=== PATIENT | male | born 1965 ===

== ENCOUNTER 2016-06-06 08:10 | Emergency (ER) | payer OTHER, SELFPAY ==
[2016-06-06 08:13] VITALS: BMI 22.6
[2016-06-06 08:35] VITALS: O2SAT 98
[2016-06-06] MEDS ORDERED: Sodium Chloride 0.9% 1,000 ML IV STA ×2 (09:14→10:10)
--- NOTE | 2016-06-06 09:36 | ED PDOC ---
HPI: General Adult Time Seen by Provider: 06/06/16 09:09 Chief Complaint (Nursing): Dizziness/Lightheaded Chief Complaint (Provider): Dizziness/Lightheaded History Per: Patient History/Exam Limitations: no limitations Onset/Duration Of Symptoms: Days Current Symptoms Are (Timing): Still Present Additional Complaint(s): 51 y/o male with a past medical history of diabetes who presents to the emergency department with a complaint of an elevated blood sugar prior to arrival. Patient states he did not test his sugar but knew because he as [age] , and had a dry mouth. Had experienced similar episode in the past. Denies taking medications for DM. --Upon arrival, AccuCheck: >350 PMD: None Past Medical History Reviewed: Historical Data, Nursing Documentation, Vital Signs Vital Signs: Last Vital Signs Temp 98.6 F 06/06/16 15:45 Pulse 84 06/06/16 15:45 Resp 20 06/06/16 15:45 BP 120/70 06/06/16 15:45 Pulse Ox 98 06/06/16 15:45 - Medical History PMH: No Chronic Diseases - Surgical History Surgical History: No Surg Hx - Family History Family History: States: Unknown Family Hx - Social History Current smoker - smoking cessation education provided: No Alcohol: None Drugs: Denies - Home Medications Home Medications: Ambulatory Orders Medication Instructions Recorded metFORMIN [glucOPHAGE] 500 mg PO BID #20 tab 06/06/16 - Allergies Allergies/Adverse Reactions: Allergies Allergy/AdvReac Type Severity Reaction Status Date / Time No Known Allergies Allergy Verified 06/06/16 08:27 Review of Systems ROS Statement: Except As Marked, All Systems Reviewed And Found Negative Constitutional: Positive for: Other (Thirsty and elevated blood sugar) Physical Exam - Reviewed Nursing Documentation Reviewed: Yes Vital Signs Reviewed: Yes - Physical Exam Appears: Positive for: Non-toxic, No Acute Distress Head Exam: Positive for: ATRAUMATIC, NORMOCEPHALIC Skin: Positive for: Normal Color, Warm, Dry Neck: Positive for: Normal, Supple Cardiovascular/Chest: Positive for: Regular Rate, Rhythm. Negative for: Murmur Respiratory: Positive for: Normal Breath Sounds. Negative for: Accessory Muscle Use, Respiratory Distress Neurologic/Psych: Positive for: Alert, Oriented - Laboratory Results Result Diagrams: 06/06/16 09:30 06/06/16 09:30 - ECG O2 Sat by Pulse Oximetry: 98 (RA) Pulse Ox Interpretation: Normal Medical Decision Making Medical Decision Making: Time: 9:09 Initial impression: Elevated Blood Sugar Count Initial plan: --VBG Venous Blood gas --Electrocardiogram Stat --COMP Metabolic Panel --Ed Urine dipstick (POC) --EKG-ED (EDNURTX) Stat --CBC w/ differential --Sodium Chloride 1,000 ml IV 1,000 mls/hr --Glucose, Blood, POC Stat --Urinalysis Stat --Revaluation Scribe Attestation: Documented by Natalia Wood, acting as a scribe for Josefina Esteban. Provider Scribe Attestation: All medical record entries made by the Scribe were at my direction and personally dictated by me. I have reviewed the chart and agree that the record accurately reflects my personal performance of the history, physical exam, medical decision making, and the department course for this patient. I have also personally directed, reviewed, and agree with the discharge instructions and disposition. Disposition - Clinical Impression Clinical Impression: Hyperglycemia - Disposition Referrals: [facility] [Outside] Disposition: Routine/Home Disposition Time: 12:21 Condition: STABLE Additional Instructions: LLENAR LA PRESCRIPCIN DE MEDICACIN PARA LA DIABETES SIN FALTA! Prescriptions: metFORMIN [glucOPHAGE] 500 mg PO BID #20 tab Instructions: Diabetic Hyperglycemia (ED) Print Language: PERSIAN
[2016-06-06 09:47] LABS: BASO % 0.5 % (0.0-2.0); EOS % 0.9 % (0.0-4.0); HEMATOCRIT 44.7 % (35.0-51.0); LYMPH # 1.7 K/uL (1.0-4.3); LYMPH % 39.8 % (20.0-40.0); MEAN CELL VOLUME 94.4 fl (80.0-94.0); MEAN CORPUSCULAR HEMOGLOBIN 31.4 pg (27.0-31.0); MEAN CORPUSCULAR HGB CONC 33.3 g/dL (33.0-37.0); MONO # 0.4 K/uL (0.0-0.8); MONO % 8.8 % (0.0-10.0); NEUT # 2.1 K/uL (1.8-7.0); NRBC % 0.1 % (0.0-0.0); RED CELL DISTRIBUTION WIDTH 13.3 % (11.5-14.5); WHITE BLOOD COUNT 4.2 K/uL (4.8-10.8)
[2016-06-06 09:54] LABS: ALKALINE PHOSPHATASE 123 U/L (38-126); ALT/SGPT 58 U/L (21-72); AST/SGOT 50 U/L (17-59); BLOOD UREA NITROGEN 17 mg/dl (9-20); CALCIUM 9.4 mg/dL (8.4-10.2); CARBON DIOXIDE 21 mmol/L (22-30); CHLORIDE 103 mmol/L (98-107); GFR AFRICAN-AMERICAN > 60; GLUCOSE,RANDOM 344 mg/dL (75-110); SODIUM 139 mmol/l (132-148); TOTAL PROTEIN 8.2 G/DL (6.3-8.2)
[2016-06-06 09:55] LABS: ALB/GLOB RATIO 1.1 (1.0-2.1); RBC URINE 1 /hpf (0-3); URINE BILIRUBIN NEGATIVE (NEGATIVE); URINE BLOOD NEGATIVE (NEGATIVE); URINE COLOR YELLOW (YELLOW); URINE GLUCOSE (UA) >=500 mg/dL (Normal); URINE KETONE 80 mg/dL (NEGATIVE); URINE LEUKOCYTE ESTERASE NEG Leu/uL (Negative); URINE PROTEIN NEGATIVE (NEGATIVE); URINE UROBILINOGEN 0.2-1.0 mg/dL (0.2-1.0); WBC URINE 2 /hpf (0-5)
[2016-06-06 09:56] LABS: POTASSIUM 4.3 MMOL/L (3.6-5.0)
[2016-06-06 10:22] LABS: VENOUS BLOOD GAS BASE EXCESS 0.8 mmol/L (0.0-2.0); VENOUS BLOOD GAS PCO2 49 mmHg (40-60); VENOUS BLOOD PH 7.35 (7.32-7.43)
[2016-06-06 15:47] VITALS: BP 120/70; PULSE 84; RESP 20; TEMP 98.6
--- NOTE | 2016-06-06 18:03 | CARD ---
APPROVED REPORT EKG Measurement Heart [id number] <Conclusion> Sinus bradycardia Otherwise normal ECG
== END 2016-06-06 15:48 | disposition home or self-care (01) ==
LOC: H.ER 08:10
DX: E11.65 Type 2 diabetes mellitus with hyperglycemia (principal)

== ENCOUNTER 2016-06-27 12:13 | Emergency (ER) | payer SELFPAY ==
[2016-06-27 12:13] VITALS: BMI 22.6
[2016-06-27 12:23] VITALS: BP 107/69; PULSE 66; RESP 18; TEMP 97.8; O2SAT 100
--- NOTE | 2016-06-27 12:40 | ED PDOC ---
ATTENTION PHYSICIANS Hyperglycemia/Hypoglycemia Chief Complaint (Provider): Hyperglycemia History Per: Patient History/Exam Limitations: no limitations Current Diabetic Medications: Oral Medication (Metformin 500mg BID) Causative (Exacerbating) Factor(s): Missed Taking Medication Associated Infectious Symptoms: denies: Cough, Sore Throat, Sinus Congestion, Dysuria, Urinary Urgency, Urinary Frequency, Nausea, Vomiting, Diarrhea : The patient does not have any of the infectious symptoms listed except for those marked. Treatment Prior To Provider Evaluation: Accucheck Additional Complaint(s): 51 year old male with medical history of diabetes mellitus presents to ED via PMD office due to hyperglycemia. Patient went to PMD office for DM management, found to have BS >300 and ketonuria. No medications given then. Last meal last night. Patient states has not taken metformin x 2 weeks due to running out of medications. Patient denies abdominal pain, nausea, vomiting, chest pain, sob, headache, palpitations, dysuria, polyuria, polydipsia. No cough, fever, chills, recent illness, or recent travel. PMD: Dr. Brand, [facility] <Aidan Medley - Last Filed: 06/27/16 14:49> <Martha Moses - Last Filed: 06/27/16 16:10> Time Seen by Provider: 06/27/16 12:25 Chief Complaint (Nursing): High Blood Sugar Supervising Attending Note - Supervising Attending Note The Documented history was done by the: Physician Dray Driver The documented physical exam was done by the: Physician Dray Driver The documented procedures were done by the: Physician Dray Driver - Attestation: I have personally seen and examined this patient.: Yes I have fully participated in the care of the patient.: Yes I have reviewed all pertinent clinical information, including history, physical exam and plan: Yes <Martha Moses - Last Filed: 06/27/16 16:10> Past Medical History Vital Signs: Last Vital Signs Temp 97.8 F 06/27/16 12:20 Pulse 66 06/27/16 12:20 Resp 18 06/27/16 12:20 BP 107/69 06/27/16 12:20 Pulse Ox 100 06/27/16 12:20 - Family History Family History: States: Unknown Family Hx <Aidan Medley - Last Filed: 06/27/16 14:49> Vital Signs: Last Vital Signs Temp 97.8 F 06/27/16 12:20 Pulse 66 06/27/16 12:20 Resp 18 06/27/16 12:20 BP 107/69 06/27/16 12:20 Pulse Ox 100 06/27/16 14:51 <Martha Moses - Last Filed: 06/27/16 16:10> - Home Medications Home Medications: Ambulatory Orders Medication Instructions Recorded metFORMIN [glucOPHAGE] 500 mg PO BID #20 tab 06/06/16 MetFORMIN [glucoPHAGE] 1,000 mg PO BID #60 tab 06/27/16 - Allergies Allergies/Adverse Reactions: Allergies Allergy/AdvReac Type Severity Reaction Status Date / Time No Known Allergies Allergy Verified 06/06/16 08:27 - Laboratory Results Result Diagrams: 06/27/16 12:17 06/27/16 12:17 - ECG O2 Sat by Pulse Oximetry: 100 Pulse Ox Interpretation: Normal - Progress ED Course And Treament: Time: 1240 Initial impression: 51 year old male with DMII with hyperglycemia/ketonuria, asymptomatic. Plan: * POC - 340 * CBC * CMP * VBG * URINALYSIS * NS 1L BOLUS * REEVAL Time: 1430 Labs reviewed, Ketonuria, Glucosuria, Hyperkalemia (5.3), Serum Gluc 331. POC after bolus 290 Will administer 4U of Insulin SQ and 1L of NS. Repeat POC after interventions <Aidan Medley - Last Filed: 06/27/16 14:49> - Laboratory Results Result Diagrams: 06/27/16 12:17 06/27/16 12:17 <Martha Moses - Last Filed: 06/27/16 16:10> Disposition <Aidan Medley - Last Filed: 06/27/16 14:49> - Patient ED Disposition Is Patient to be Admitted: No Doctor Will See Patient In The: Office - Disposition Disposition: Routine/Home Disposition Time: 16:10 - POA Present On Arrival: None <Martha Moses - Last Filed: 06/27/16 16:10> - Clinical Impression Clinical Impression: Hyperglycemia, Diabetes - Disposition Referrals: Leonila Brand MD [Resident] - Condition: STABLE Additional Instructions: Follow up with PMD within 7 days. Take medications as prescribed. Monitor blood glucose levels at home. Return to ED for worsening symptoms. Prescriptions: MetFORMIN [glucoPHAGE] 1,000 mg PO BID #60 tab Instructions: Diabetic Hyperglycemia (ED) Print Language: FRENCH
[2016-06-27] MEDS: Sodium Chloride 0.9% 1,000 ML IV SCH ×2 (13:03→14:52)
[2016-06-27 13:09] LABS: RBC URINE 2 /hpf (0-3); URINE BILIRUBIN NEGATIVE (NEGATIVE); URINE BLOOD NEGATIVE (NEGATIVE); URINE COLOR YELLOW (YELLOW); URINE GLUCOSE (UA) >=500 mg/dL (Normal); URINE KETONE 80 mg/dL (NEGATIVE); URINE LEUKOCYTE ESTERASE NEG Leu/uL (Negative); URINE PROTEIN NEGATIVE (NEGATIVE); URINE UROBILINOGEN 0.2-1.0 mg/dL (0.2-1.0); WBC URINE < 1 /hpf (0-5)
[2016-06-27 13:11] LABS: VENOUS BLOOD GAS BASE EXCESS 3.6 mmol/L (0.0-2.0); VENOUS BLOOD GAS PCO2 60 mmHg (40-60); VENOUS BLOOD PH 7.33 (7.32-7.43)
[2016-06-27 13:12] LABS: EOS % 0.3 % (0.0-4.0); HEMATOCRIT 45.1 % (35.0-51.0); LYMPH # 1.3 K/uL (1.0-4.3); LYMPH % 30.9 % (20.0-40.0); MEAN CORPUSCULAR HEMOGLOBIN 32.1 pg (27.0-31.0); MEAN CORPUSCULAR HGB CONC 34.5 g/dL (33.0-37.0); MEAN PLATELET VOLUME 10.6 fl (7.2-11.7); MONO # 0.3 K/uL (0.0-0.8); MONO % 7.5 % (0.0-10.0); NEUT # 2.6 K/uL (1.8-7.0); NEUT % 60.3 % (50.0-75.0); NRBC % 0.2 % (0.0-0.0); RED CELL DISTRIBUTION WIDTH 13.1 % (11.5-14.5); WHITE BLOOD COUNT 4.3 K/uL (4.8-10.8)
[2016-06-27 13:31] LABS: ALB/GLOB RATIO 1.3 (1.0-2.1); ALKALINE PHOSPHATASE 122 U/L (38-126); ALT/SGPT 70 U/L (21-72); AST/SGOT 42 U/L (17-59); BILIRUBIN,TOTAL 0.7 mg/dl (0.2-1.3); BLOOD UREA NITROGEN 24 mg/dl (9-20); CALCIUM 9.8 mg/dL (8.4-10.2); CARBON DIOXIDE 27 mmol/L (22-30); CHLORIDE 101 mmol/L (98-107); GFR AFRICAN-AMERICAN > 60; GLUCOSE,RANDOM 331 mg/dL (75-110); POTASSIUM 5.3 MMOL/L (3.6-5.0); SODIUM 138 mmol/l (132-148); TOTAL PROTEIN 8.3 G/DL (6.3-8.2)
[2016-06-27] MEDS ORDERED: Insulin Regular 100 units/ml SC STA (14:49)
[2016-06-27] MEDS ORDERED: Sodium Chloride 0.9% 1,000 ML IV SCH (15:00)
== END 2016-06-27 16:20 | disposition home or self-care (01) ==
LOC: H.ER 12:13
DX: E11.65 Type 2 diabetes mellitus with hyperglycemia (principal); Z79.4 Long term (current) use of insulin; E87.5 Hyperkalemia

== ENCOUNTER 2016-09-22 11:11 | Emergency (ER) | payer OTHER ==
[2016-09-22 11:11] VITALS: BMI 22.6
[2016-09-22] MEDS ORDERED: Sodium Chloride 0.9% 1,000 ML IV STA (11:36)
[2016-09-22 12:23] LABS: BASO % 0.5 % (0.0-2.0); EOS % 0.2 % (0.0-4.0); LYMPH # 1.5 K/uL (1.0-4.3); LYMPH % 31.7 % (20.0-40.0); MEAN CELL VOLUME 95.8 fl (80.0-94.0); MEAN CORPUSCULAR HGB CONC 34.5 g/dL (33.0-37.0); MEAN PLATELET VOLUME 10.3 fl (7.2-11.7); MONO # 0.3 K/uL (0.0-0.8); MONO % 6.4 % (0.0-10.0); NEUT # 2.9 K/uL (1.8-7.0); NEUT % 61.2 % (50.0-75.0); NRBC % 0.1 % (0.0-0.0); RBC 4.25 Mil/uL (4.40-5.90); RED CELL DISTRIBUTION WIDTH 13.8 % (11.5-14.5); WHITE BLOOD COUNT 4.7 K/uL (4.8-10.8)
[2016-09-22 12:27] LABS: URINE BILIRUBIN NEGATIVE (NEGATIVE); URINE BLOOD NEGATIVE (NEGATIVE); URINE CLARITY CLEAR (Clear); URINE COLOR STRAW (YELLOW); URINE GLUCOSE (UA) >=500 mg/dL (Normal); URINE LEUKOCYTE ESTERASE NEG Leu/uL (Negative); URINE NITRATE NEGATIVE (NEGATIVE); URINE PROTEIN NEGATIVE (NEGATIVE); URINE UROBILINOGEN 0.2-1.0 mg/dL (0.2-1.0)
[2016-09-22 12:48] LABS: ABG ALLEN TEST YES; ARTERIAL BLOOD GAS HCO3 24.6 mmol/L (21-28); ARTERIAL BLOOD GAS O2 SAT 99.8 % (95-98); ARTERIAL BLOOD GAS PCO2 38 mm/Hg (35-45); ARTERIAL BLOOD GAS PH 7.41 (7.35-7.45); ARTERIAL BLOOD GAS PO2 110 mm/Hg (80-100); ARTERIAL BLOOD GAS TCO2 25.3 mmol/L (22-28)
[2016-09-22] MEDS ORDERED: Insulin Regular 100 units/ml SC STA (12:55)
[2016-09-22 12:57] LABS: ALB/GLOB RATIO 1.3 (1.0-2.1); ALT/SGPT 83 U/L (21-72); AST/SGOT 56 U/L (17-59); BLOOD UREA NITROGEN 15 mg/dl (9-20); CALCIUM 8.9 mg/dL (8.4-10.2); GFR AFRICAN-AMERICAN > 60; GFR NON-AFRICAN AMERICAN > 60
--- NOTE | 2016-09-22 13:17 | ED PDOC ---
HPI: General Adult Time Seen by Provider: 09/22/16 11:35 Chief Complaint (Nursing): Medical Clearance Chief Complaint (Provider): medical eval History Per: Patient History/Exam Limitations: no limitations Additional Complaint(s): 51yo M in ED sent from clinic for elevated BS , taking metformin and with some dizziness. denies SOB, CP, SMART, vision changes, increased urination, Past Medical History Reviewed: Historical Data, Nursing Documentation, Vital Signs Vital Signs: Last Vital Signs Temp 98.1 F 09/22/16 14:20 Pulse 66 09/22/16 14:20 Resp 18 09/22/16 14:20 BP 119/77 09/22/16 14:20 Pulse Ox 100 09/22/16 14:20 - Medical History PMH: Graves' Disease - Family History Family History: States: Unknown Family Hx - Home Medications Home Medications: Ambulatory Orders Medication Instructions Recorded metFORMIN [glucOPHAGE] 500 mg PO BID #20 tab 06/06/16 MetFORMIN [glucoPHAGE] 1,000 mg PO BID #60 tab 06/27/16 - Allergies Allergies/Adverse Reactions: Allergies Allergy/AdvReac Type Severity Reaction Status Date / Time No Known Allergies Allergy Verified 09/22/16 11:25 Review of Systems ROS Statement: Except As Marked, All Systems Reviewed And Found Negative Constitutional: Negative for: Fever, Chills Cardiovascular: Negative for: Chest Pain, Palpitations Respiratory: Negative for: Cough Gastrointestinal: Negative for: Nausea, Vomiting, Abdominal Pain Genitourinary Male: Negative for: Dysuria, Frequency Neurological: Positive for: Dizziness Physical Exam - Reviewed Nursing Documentation Reviewed: Yes Vital Signs Reviewed: Yes - Physical Exam Appears: Positive for: Well, Non-toxic, No Acute Distress Head Exam: Positive for: ATRAUMATIC, NORMAL INSPECTION, NORMOCEPHALIC Skin: Positive for: Normal Color, Warm, DRY Cardiovascular/Chest: Positive for: Regular Rate, Rhythm Respiratory: Positive for: CNT, Normal Breath Sounds Gastrointestinal/Abdominal: Positive for: Normal Exam, Bowel Sounds, Soft. Negative for: Tenderness Neurologic/Psych: Positive for: Alert, Oriented - Laboratory Results Result Diagrams: 09/22/16 12:10 09/22/16 12:15 - Progress ED Course And Treament: pt will get IV fluids cbc/cmp/UA Pt BS is elevated will get insulin and repeat FS. ABG done-no anion gap noted. normal ph Medical Decision Making Medical Decision Making: pt stable in ED BS improved. pt advised to continue f/u with clinic. continue with Rx medication . philip made aware of case. Disposition - Clinical Impression Clinical Impression: Hyperglycemia - Patient ED Disposition Is Patient to be Admitted: No Counseled Patient/Family Regarding: Studies Performed, Diagnosis, Need For Followup - Disposition Disposition: Routine/Home Disposition Time: 15:03 Condition: IMPROVED Instructions: How to Check Your Blood Sugar (ED), Diabetic Hypoglycemia (ED) Forms: [employer] (Kenyan) Print Language: AMHARIC
[2016-09-22 14:22] VITALS: BP 119/77; PULSE 66; RESP 18; TEMP 98.1; O2SAT 100
--- NOTE | 2016-09-23 08:07 | CARD ---
APPROVED REPORT EKG Measurement Heart [id number] <Conclusion> Normal sinus rhythm Normal ECG
== END 2016-09-22 15:55 | disposition home or self-care (01) ==
LOC: H.ER 11:11
DX: E11.65 Type 2 diabetes mellitus with hyperglycemia (principal); Z79.84 Long term (current) use of oral hypoglycemic drugs; E05.00 Thyrotoxicosis with diffuse goiter without thyrotoxic crisis or storm

== ENCOUNTER 2018-03-24 22:29 | Emergency (ER) | payer SELFPAY ==
[2018-03-24 22:29] VITALS: BMI 22.6
--- NOTE | 2018-03-25 03:42 | ED PDOC ---
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 States he has poor vision secondary to diabetes and tripped over his feet because there was not enough light out, states he hit his head and bruised his right wrist. Denies loss of consciousness, no vomiting. PMD: [facility] Past Medical History Vital Signs: Last Vital Signs Temp 98.1 F 03/24/18 23:57 Pulse 94 H 03/24/18 23:57 Resp 16 03/24/18 23:57 BP 151/86 H 03/24/18 23:57 Pulse Ox 97 03/24/18 23:57 - Medical History PMH: Graves' Disease - Family History Family History: States: Unknown Family Hx - Home Medications Home Medications: Ambulatory Orders Medication Instructions Recorded metFORMIN [glucOPHAGE] 500 mg PO BID #20 tab 06/06/16 MetFORMIN [glucoPHAGE] 1,000 mg PO BID #60 tab 06/27/16 MetFORMIN [glucoPHAGE] 1,000 mg PO BID #14 tab 09/22/16 - Allergies Allergies/Adverse Reactions: Allergies Allergy/AdvReac Type Severity Reaction Status Date / Time No Known Allergies Allergy Verified 03/24/18 23:57 Review of Systems ROS Statement: Except As Marked, All Systems Reviewed And Found Negative Musculoskeletal: Positive for: Arm Pain Neurological: Negative for: Weakness, Numbness, Confusion, Seizures, Altered M ental Status, Headache, Dizziness Physical Exam - Reviewed Nursing Documentation Reviewed: Yes Vital Signs Reviewed: Yes - Physical Exam Appears: Positive for: Well, Non-toxic, No Acute Distress Head Exam: Positive for: NORMAL INSPECTION, NORMOCEPHALIC. Negative for: ATRAUMATIC (abrasion to R eyebrow) Skin: Positive for: Normal Color, Warm, DRY Eye Exam: Positive for: EOMI, Normal appearance, PERRL ENT: Positive for: Normal ENT Inspection Neck: Positive for: Normal, Painless ROM Cardiovascular/Chest: Positive for: Regular Rate, Rhythm Respiratory: Positive for: CNT, Normal Breath Sounds Gastrointestinal/Abdominal: Positive for: Normal Exam, Soft Back: Positive for: Normal Inspection Extremity: Positive for: Swelling (R wrist, no bony abnormality, near complete range of motion, distally neurovasculalry intact) Neurologic/Psych: Positive for: Alert, Oriented - ECG O2 Sat by Pulse Oximetry: 97 Pulse Ox Interpretation: Normal Medical Decision Making Medical Decision Makin53 year old M with fall with head and arm injury --Will get head CT to rule out acute intracranial pathology --Wrist XR to rule out fracture --NSAID for pain relief 545AM CT head negative Right wrist, 3 views. Indication: Fall. Findings: Acute vertical mildly displaced fracture of the distal radial metaphysis reaching the radiocarpal joint space. Overlying soft tissue edema and swelling. There are changes of degenerative joint disease. Impression: Acute vertical mildly displaced fracture of the distal radial metaphysis reaching the radiocarpal joint space. Electronically signed on Mar 25, 2018 5:14:23 AM EST by: Jacoby Hernández M.D., Certified by ABR, MSK, Neuroradiology Patient placed in sugar tong splint Advised patient to taken NSAIDs for pain Will give referral for ortho clinic and [facility] clinic Disposition - Clinical Impression Clinical Impression: Radius fracture, Head injury - Patient ED Disposition Is Patient to be Admitted: No - Disposition Referrals: [facility] [place] [Outside] [facility] [place] [Outside] Disposition: Routine/Home Disposition Time: 05:50 Condition: GOOD Instructions: Radius Fracture, Closed Head Injury Forms: [employer] (German) Print Language: NIGERIAN
[2018-03-25 06:23] VITALS: BP 106/65; PULSE 89; RESP 19; TEMP 98.6; O2SAT 99
--- NOTE | 2018-03-25 09:46 | RAD ---
Date of service: 03/25/2018 PROCEDURE: Right Wrist Radiographs. HISTORY: trip and fall COMPARISON: None. FINDINGS: BONES: Suspect displaced intra-articular fracture distal radius. There is mild dorsal angulation/displacement of a fracture fragment. No other fracture is identified. JOINTS: Normal carpal alignment. Radiocarpal articulation is grossly intact. SOFT TISSUES: There is evidence of hemarthrosis with a pronator fat pad sign. OTHER FINDINGS: None. IMPRESSION: Intra-articular mildly displaced distal radial fracture. The preliminary findings for this examination were reported by [facility] at 5:14 a.m. on 03/25/2018. There is concurrence of this report with the preliminary findings.
--- NOTE | 2018-03-25 10:04 | CT ---
Date of service: 03/25/2018 PROCEDURE: CT HEAD WITHOUT CONTRAST. HISTORY: trip and fall COMPARISON: None available. TECHNIQUE: Axial computed tomography images were obtained through the head/brain without intravenous contrast. Radiation dose: Total exam DLP = 681.66 mGy-cm. This CT exam was performed using one or more of the following dose reduction techniques: Automated exposure control, adjustment of the mA and/or kV according to patient size, and/or use of iterative reconstruction technique. FINDINGS: HEMORRHAGE: No intracranial hemorrhage. BRAIN: No mass effect or edema. No atrophy or chronic microvascular ischemic changes. VENTRICLES: Unremarkable. No hydrocephalus. CALVARIUM: Unremarkable. PARANASAL SINUSES: Chronic bilateral maxillary sinusitis. No evidence of acute MASTOID AIR CELLS: Sinusitis. OTHER FINDINGS: None. IMPRESSION: No intracranial hemorrhage. Chronic bilateral maxillary sinusitis. Otherwise unremarkable examination. The preliminary findings for this examination were reported by [facility] at 3:53 a.m. on 03/25/2018. There is concurrence of this report with the preliminary findings.
== END 2018-03-25 06:21 | disposition home or self-care (01) ==
LOC: H.ER 22:29
DX: R55 Syncope and collapse (principal); S09.90XA Unspecified injury of head, initial encounter; S52.591A Other fractures of lower end of right radius, initial encounter for closed fracture; W01.0XXA Fall on same level from slipping, tripping and stumbling without subsequent striking against object, initial encounter; Y92.89 Other specified places as the place of occurrence of the external cause; E11.9 Type 2 diabetes mellitus without complications; Z79.84 Long term (current) use of oral hypoglycemic drugs; E05.00 Thyrotoxicosis with diffuse goiter without thyrotoxic crisis or storm; J32.0 Chronic maxillary sinusitis